=== PATIENT | male | born 1955 | race Hispanic/Latino ===

== ENCOUNTER 2021-06-26 14:51 | Outpatient (CLI) | payer BC | END 2021-06-26 14:52 | disposition home or self-care (01) | LOC: CSHULT 14:51 | PROVIDERS: ATTEND Internal Medicine | DX: R05.3 Chronic cough (principal); R06.01 Orthopnea; I51.7 Cardiomegaly; R93.1 Abnormal findings on diagnostic imaging of heart and coronary circulation; J98.6 Disorders of diaphragm | CPT/HCPCS: 71250; 93306 ==

== ENCOUNTER 2024-11-03 12:22 | Outpatient (CLI) | payer MEDICARE, BC | END 2024-11-03 12:23 | disposition home or self-care (01) | LOC: EDBD → CSHULT 12:22 → EDBD 13:00 | PROVIDERS: ATTEND Internal Medicine | DX: I51.9 Heart disease, unspecified (principal) | CPT/HCPCS: 93306 ==